=== PATIENT | female | born 1995 | race Hispanic/Latino ===

== ENCOUNTER → 2023-04-12 | Emergency (ER) | payer MEDICAID ==
[~2023-04-12] VITALS: Ht 149.9 cm; Wt 51.7 kg
[~2023-04-12] MED LIST: LACTATED RINGERS 1000ML 1,000 ML IV ONE; ONDANSETRON 4MG INJ IVP ONE
[2023-04-12 09:45] VITALS: BP 124/74; PULSE 100; RESP 22
[2023-04-12 10:08] LABS: APPEARANCE,URINE CLOUDY (CLEAR); BILIRUBIN,URINE NEGATIVE (NEGATIVE); COLOR,URINE YELLOW (YELLOW); GLUCOSE, URINE (UA) NEGATIVE (NEGATIVE); KETONES,URINE NEGATIVE (NEGATIVE); LEUKOCYTE ESTERASE ,URINE 25 Leu/uL (NEGATIVE); NITRATE,URINE NEGATIVE (NEGATIVE); OCCULT BLOOD,URINE NEGATIVE (NEGATIVE); PH,URINE 8.5 (5.0-8.0); PROTEIN,URINE 50 mg/dL (NEGATIVE); UROBILINOGEN,URINE 0.2 mg/dL (0.2-1.0)
[2023-04-12 10:16] LABS: BASOPHILS % (AUTO) 0.3 % (0.0-5.0); HEMATOCRIT 36.8 % (36-48); LYMPHOCYTES % (AUTO) 5.2 % (21.0-51.0); MEAN CORPUSCULAR HEMOGLOBIN 28.3 pg (27.0-33.0); MEAN CORPUSCULAR HGB CONC 33.2 g/dL (32.0-36.0); MEAN CORPUSCULAR VOLUME 85.4 fL (79-99); MONOCYTES % (AUTO) 4.4 % (3.0-13.0); NEUTROPHILS % (AUTO) 89.7 % (40.0-77.0); PLATELET COUNT (AUTO) 286 K/uL (130-400); RED BLOOD CELL COUNT(AUTO) 4.31 MIL/uL (4.00-5.50); RED CELL DISTRIBUTION WIDTH 15.2 % (11.0-15.5); WHITE BLOOD COUNT (AUTO) 20.2 K/uL (4.8-10.8)
[2023-04-12 10:27] LABS: CREATININE 0.7 mg/dL (0.5-1.5)
[2023-04-12 10:32] LABS: ALBUMIN 3.8 g/dL (3.5-5.0); TOTAL PROTEIN, SERUM 7.9 g/dL (6.0-8.3)
[2023-04-12 10:47] LABS: HCG,QUALITATIVE URINE NEGATIVE (NEGATIVE)
[2023-04-12 10:58] LABS: BACTERIA,URINE FEW /HPF (None Seen); MUCUS,URINE FEW LPF (None Seen); SQUAMOUS EPITHELIAL CELL,UR MOD /HPF (0-2)
== END ==
LOC: EDH 09:39
DX: R10.30 Lower abdominal pain, unspecified (principal); K92.0 Hematemesis; F41.9 Anxiety disorder, unspecified
CPT/HCPCS: 36415; 80053; 81001; 81025; 85025